=== PATIENT | female | born 1990 | race African-American/Black ===

== ENCOUNTER 2017-08-31 23:02 | Emergency (ER) | payer OTHER ==
[~2017-08-31] VITALS: Ht 165.1 cm; Wt 93.0 kg
[2017-08-31 23:35] VITALS: BP 104/68
[2017-08-31] MEDS ORDERED: TESSALON PERLE100 MG ORAL (23:42)
--- NOTE | 2017-08-31 23:48 | Emergency Room Report ---
History of Present Illness General Chief Complaint: Earache Source: Patient Present Illness HPI 26-year-old female presents with fever, chills, cough, runny nose and right ear ache for 3 days. Cough is productive with clear phlegm. Pt still eating/ drinking well. +sick contacts. No recent travel. No SOB, cp, abdominal pain, n/v /d. Allergies: Coded Allergies: No Known Allergies (Unverified , 08/31/17) Patient History Past Medical History: see triage record Past Surgical History: none Pertinent Family History: none Last Menstrual Period: 08/30/17 Now: No Reviewed Nursing Documentation: PMH: Agreed; PSxH: Agreed Nursing Documentation-PMH Past Medical History: No History, Except For Hx Hypertension: Yes Hx Asthma: No - Bronchitis Review of Systems All Other Systems: negative except mentioned in HPI Physical Exam Vital Signs Date Time Temp Pulse Resp B/P (MAP) Pulse Ox O2 Delivery O2 Flow Rate FiO2 08/31/17 23:18 97.6 81 16 104/68 97 Room Air 97.5 Sp02 EP Interpretation: reviewed, normal General Appearance: normal inspection, well appearing, no apparent distress, alert, GCS 15, non-toxic Head: normocephalic, atraumatic Eyes: bilateral eye normal inspection, bilateral eye PERRL, bilateral eye EOMI ENT: normal pharynx, normal voice, TMs + canals normal, moist mucus membranes, pharyngeal erythema, other - no exudate Neck: normal inspection, full range of motion, supple Respiratory: normal inspection, lungs clear, normal breath sounds, no respiratory distress, no retraction, no wheezing, speaking full sentences, chest symmetrical Cardiovascular #1: normal inspection, regular rate, rhythm, no edema, normal capillary refill Cardiovascular #2: 2+ radial (R), 2+ radial (L) Gastrointestinal: normal inspection, non tender, soft, non-distended, no guarding Musculoskeletal: normal inspection, back normal, normal range of motion, non- tender Neurologic: normal inspection, alert, oriented x3, responsive, motor strength/ tone normal, sensory intact, normal gait, speech normal Psychiatric: normal inspection, judgement/insight normal, memory normal Skin: normal inspection, normal color, no rash, warm/dry, well hydrated, normal turgor Medical Decision Making Diagnostic Impression: Primary Impression: URI (upper respiratory infection) ER Course 26-year-old female p/w fever, chills, runny nose, cough Appears non- toxic, well hydrated, tolerating PO DDX: Likely viral URI/viral pharyngitis Plan: Motrin ER course: Pt stable in ED, remains nontoxic appearing, no sob. Tolerating PO Disposition: Patient discharged to home with Isaac Le Patient instructed to follow up with PMD in 1 week. Also instructed to take motrin/tylenol at home. Very strict return precautions discussed with patient such as intractable fever and chills, unable to eat or drink, severe chest pain or shortness of breath. Patient verbalized understanding and agrees with plan. Please note that this Emergency Department Report was dictated using [employer] designer apprentice technology software, occasionally this can lead to erroneous entry secondary to interpretation by the dictation equipment Last Vital Signs Date Time Temp Pulse Resp B/P (MAP) Pulse Ox O2 Delivery O2 Flow Rate FiO2 08/31/17 23:18 97.6 81 16 104/68 97 Room Air 97.5 Disposition: HOME, SELF-CARE Condition: Improved Scripts Benzonatate* (ISAAC HUBBARD*) 100 Mg Capsule 100 MG ORAL THREE TIMES A DAY, #21 STEVIE Prov: Jory Oakley M.D. 08/31/17 Patient Instructions: Upper Respiratory Infection, Adult, [id number] Jory Oakley M.D. Aug 31, 2017 23:48
[2017-08-31 23:54] VITALS: BP 104/68
== END 2017-08-31 23:55 | disposition home or self-care (01) ==
LOC: EMR 23:35
DX: J06.9 Acute upper respiratory infection, unspecified (principal); I10 Essential (primary) hypertension
CPT/HCPCS: 99283

== ENCOUNTER 2017-09-12 23:18 | Emergency (ER) | payer OTHER ==
[~2017-09-12] VITALS: Ht 167.6 cm; Wt 93.9 kg
[~2017-09-12 23:18] MED LIST: TESSALON PERLE100 MG ORAL
[2017-09-12 23:40] VITALS: BP 124/82
[2017-09-13] MEDS ORDERED: CLARITIN-D 121 EAC1 ORAL (00:04)
[2017-09-13 00:20] VITALS: BP 124/82
--- NOTE | 2017-09-13 04:39 | Emergency Room Report ---
History of Present Illness General Chief Complaint: Earache Source: Patient Present Illness HPI Patient is a 26-year-old female who presented after increased right earache. Patient recent right-sided ear pain. Reported sharp in nature. Patient had the pain was present for one day. Patient recently been treated with antibiotics after right ear infection. She denies any swimming. She denies any recent trauma. She had not been having any vertigo or hearing loss. She denies productive cough. She denied any vocal changes. Allergies: Coded Allergies: No Known Allergies (Unverified , 08/31/17) Patient History Last Menstrual Period: 08/18/2017 Reviewed Nursing Documentation: PMH: Agreed; PSxH: Agreed Nursing Documentation-PMH Hx Hypertension: Yes Hx Asthma: No - Bronchitis Hx Cancer: No - right breast cysts Review of Systems All Other Systems: negative except mentioned in HPI Physical Exam Vital Signs Date Time Temp Pulse Resp B/P (MAP) Pulse Ox O2 Delivery O2 Flow Rate FiO2 09/12/17 23:25 98.4 75 16 124/82 97 Room Air 98.4 General Appearance: well appearing, no apparent distress, obese Head: normocephalic, atraumatic ENT: hearing grossly normal, normal voice, other - right tm no fluid or bulging Neck: full range of motion, supple Respiratory: no respiratory distress, speaking full sentences Musculoskeletal: no calf tenderness Neurologic: normal gait Psychiatric: mood/affect normal Skin: no rash Medical Decision Making Diagnostic Impression: Primary Impression: Earache symptoms in right ear ER Course Patient presented for ear pain. Differential diagnosis included was not limited to otitis media, malignant otitis externa, foreign body, cellulitis, mastoiditis, carotid dissection, myocardial infarction among others. Patient has a benign exam and does not appear to require any further imaging or laboratory testing at this time. The patient appears to have no evidence of acute infection to right ear. The patient is given prescription for decongestants. She is advised to follow-up with her primary care physician for further evaluation and treatment. Last Vital Signs Date Time Temp Pulse Resp B/P (MAP) Pulse Ox O2 Delivery O2 Flow Rate FiO2 09/13/17 00:20 98.4 16 124/82 97 Room Air 209.1 09/12/17 23:25 75 Status: improved Disposition: HOME, SELF-CARE Condition: Stable Scripts Loratadine/Pseudoephedrine (CLARITIN-D 12 HOUR TABLET) 1 Each Tab.er.12h 1 TAB ORAL EVERY 12 HOURS, #30 TAB Prov: Jesus Huggins 09/13/17 Referrals: [facility]ERR[facility] (PCP) Patient Instructions: Jesus Smith Sep 13, 2017 04:39
== END 2017-09-13 00:15 | disposition home or self-care (01) ==
LOC: EMR 23:41
DX: H92.01 Otalgia, right ear (principal); I10 Essential (primary) hypertension
CPT/HCPCS: 99283

== ENCOUNTER 2018-02-20 20:13 | Emergency (ER) | payer OTHER ==
[~2018-02-20] VITALS: Ht 167.6 cm; Wt 103.9 kg
[~2018-02-20 20:13] MED LIST changes: +CLARITIN-D 121 EAC1 ORAL
[2018-02-20 20:19] VITALS: BP 107/69
[2018-02-20] MEDS ORDERED: PREDNISONE20 MG ORAL (21:03)
[2018-02-20] MEDS ORDERED: CEPHALEXIN500 MG ORAL (21:03)
[2018-02-20 21:13] VITALS: BP 107/69
--- NOTE | 2018-02-23 22:39 | Emergency Room Report ---
History of Present Illness General Chief Complaint: Skin Rash/Abscess Source: Patient Present Illness HPI 27-year-old female presents ED for evaluation. Complaining of rash to her right arm 3 days. Started out as a small bump which got progressively worse. Denies pain. States it is itchy. Denies fevers or chills. Denies known food or drug allergies. No other aggravating relieving factors. Denies any other associated symptoms Allergies: Coded Allergies: No Known Allergies (Unverified , 02/20/18) Patient History Past Medical History: HTN Past Surgical History: none Pertinent Family History: none Social History: Denies: smoking, alcohol use, drug use Last Menstrual Period: Feb 2018 Now: No Immunizations: UTD Reviewed Nursing Documentation: PMH: Agreed; PSxH: Agreed Nursing Documentation-PMH Past Medical History: No History, Except For Hx Hypertension: Yes Hx Asthma: Yes - Bronchitis Hx Cancer: No - right breast cysts Review of Systems All Other Systems: negative except mentioned in HPI Physical Exam Vital Signs Date Time Temp Pulse Resp B/P (MAP) Pulse Ox O2 Delivery O2 Flow Rate FiO2 02/20/18 20:19 98.4 71 15 107/69 98 Room Air 98.4 Sp02 EP Interpretation: reviewed, normal General Appearance: no apparent distress, alert, GCS 15, non-toxic Head: normocephalic Eyes: bilateral eye normal inspection, bilateral eye PERRL ENT: normal ENT inspection Neck: normal inspection Respiratory: chest non-tender, lungs clear, normal breath sounds, speaking full sentences Cardiovascular #1: normal inspection Gastrointestinal: normal inspection Rectal: deferred Genitourinary: no CVA tenderness Musculoskeletal: normal inspection Neurologic: alert, oriented x3, responsive, motor strength/tone normal, sensory intact, speech normal Psychiatric: normal inspection Skin: other - circular patches of erythema/induration to RUE. no fluctuance or discharge Lymphatic: normal inspection Medical Decision Making Diagnostic Impression: Primary Impression: Rash and other nonspecific skin eruption ER Course Hospital Course 27-year-old female presents to ED with redness, swelling to RUE Differential diagnoses include: Cellulitis, dermatitis, insect bite, abscess Clinical course Patient placed on stretcher. After initial history, physical exam reveals a female in no acute distress. On exam there is a site for mild erythema and induration to the proximal right upper extremity. There is no fluctuance. There is no tenderness. Full range of motion is noted in the right shoulder and there is no concern for any signs of infection to the joint. There is no tongue swelling, no stridor, no signs of impending airway. Clinical findings consistent with a insect bite with the possible bacterial superinfection. Discussed findings with patient. We'll discharge on antibiotics. Warm compresses recommended. Close follow-up with PMD Diagnosis - rash stable and discharged to home with prescription for prednisone, Keflex. Instructed to followup with PMD. Instructed return to ED if symptoms recur or worsen Last Vital Signs Date Time Temp Pulse Resp B/P (MAP) Pulse Ox O2 Delivery O2 Flow Rate FiO2 02/20/18 21:13 98.4 15 107/69 98 Room Air 98.4 02/20/18 20:19 71 Status: improved Disposition: HOME, SELF-CARE Condition: Stable Scripts Prednisone* (PREDNISONE*) 20 Mg Tablet 40 MG ORAL DAILY, #10 TAB Prov: Franco Gross MD 02/20/18 Cephalexin* (KEFLEX*) 500 Mg Capsule 500 MG ORAL EVERY 6 HOURS for 7 Days, CAP Prov: Franco Gross MD 02/20/18 Referrals: NON PHYSICIAN (PCP) Patient Instructions: Insect Bite, [id number] Franco Gross MD Feb 23, 2018 22:39
== END 2018-02-20 22:30 | disposition home or self-care (01) ==
LOC: EMR 22:24
DX: R21 Rash and other nonspecific skin eruption (principal); I10 Essential (primary) hypertension
CPT/HCPCS: 99282

== ENCOUNTER 2018-05-07 14:59 | Emergency (ER) | payer OTHER ==
[~2018-05-07] VITALS: Ht 165.1 cm; Wt 93.9 kg
[~2018-05-07 14:59] MED LIST changes: +CEPHALEXIN500 MG ORAL; +PREDNISONE20 MG ORAL
--- NOTE | 2018-05-07 15:31 | Emergency Room Report ---
History of Present Illness General Chief Complaint: Lower Extremity Injury Source: Patient Present Illness HPI 27-year-old female patient presents the ER complaining of left ankle pain for the past 2 weeks. Patient reports that she twisted her ankle 2 weeks ago, states that she was seen by her primary care doctor at that time however states no x-ray images were performed, states she was told she has has a sprain and to soak her foot. Patient reports that she has food however states it is still painful. Reports pain with ambulation. Reports swelling on left ankle. Reports took ibuprofen 800 mg an hour before arrival to the ER. Denies fever, chest pain, shortness of breath. Reports eversion injury. Allergies: Coded Allergies: No Known Allergies (Unverified , 02/20/18) Patient History Past Medical History: see triage record Now: No Reviewed Nursing Documentation: PMH: Agreed; PSxH: Agreed Nursing Documentation-PMH Past Medical History: No History, Except For Hx Hypertension: Yes Hx Asthma: Yes - Bronchitis Hx Cancer: No - right breast cysts Review of Systems All Other Systems: negative except mentioned in HPI Physical Exam Vital Signs Date Time Temp Pulse Resp B/P (MAP) Pulse Ox O2 Delivery O2 Flow Rate FiO2 05/07/18 15:10 98.4 101 17 111/70 98 Room Air Sp02 EP Interpretation: reviewed, normal General Appearance: well appearing, no apparent distress, alert, GCS 15, non- toxic Head: normocephalic, atraumatic Eyes: bilateral eye normal inspection, bilateral eye PERRL ENT: hearing grossly normal, normal pharynx, no angioedema, normal voice, uvula midline, moist mucus membranes Neck: full range of motion Respiratory: lungs clear, normal breath sounds, no rhonchi, no respiratory distress, no accessory muscle use, no wheezing, speaking full sentences Cardiovascular #1: regular rate, rhythm, no edema Cardiovascular #2: 2+ dorsalis pedis (R), 2+ dorsalis pedis (L) Musculoskeletal: back normal, digits/nails normal, gait/station normal, normal range of motion, no calf tenderness, Alicia's Sign negative, swelling - Lateral left ankle, other - NVI, cap refill less than 2 seconds, negative ankle drawer, negative syndesmotic squeeze test, no ecchymosis, no erythema, tender - Left lateral posterior malleolus Neurologic: alert, oriented x3, responsive, motor strength/tone normal, sensory intact Medical Decision Making PA Attestation Dr. Huggins is my supervising Physician whom patient management has been discussed with. Diagnostic Impression: Primary Impression: Ankle sprain ER Course Pt. presents to the ED c/o left ankle pain. Ddx considered but are not limited to fracture, sprain, strain, contusion, dislocation. No erythema, no warmth to touch, no fever, nontoxic appearing, low suspicion for septic joint. Soft compartments, no pulselessness, no pallor, no paresthesias, low suspicion for compartment syndrome at this time. Vital signs: are WNL, pt. is afebrile Ordered X-ray and pain medication. ER COURSE Provided with pain medication. An X-ray of the left ankle shows no acute fracture per the preliminary reading, soft tissue swelling noted. Discuss results with the patient. Provided patient with copy of results. Instructed patient to followup with PCP and discuss results of report with patient, discuss need for further treatment and referral. TESSIE wrap was applied to the left ankle and was checked afterwards by me showing good alignment and support with distal neurovascular functioning intact. Crutches provided. Patient instructed on RICE method: rest, ice, compression, elevation. Patient instructed on rest, ice and heat. Patient instructed to be WBAT Contact information for orthopedic urgent care provided, follow-up with urgent care if unable to followup with primary care provider and get referral to seafood specialist. Followup with primary care provider. Discuss referral to ortho/pain management/ PT as needed. Discuss further imaging with MRI/CT as needed. DISCHARGE: At this time pt. is stable for d/c to home. Patient is resting comfortably, in no acute distress, nontoxic appearing, talking without difficulty. Will provide printed patient care instructions, and any necessary prescriptions. Patient instructed to follow with primary care provider in 3 - 5 days and to request further follow-up as needed. Care plan and follow up instructions have been discussed with the patient prior to discharge. Take medications as directed. Patient questions asked and answered. Patient reports understanding and agreement to treatment plan. ER precautions given, patient instructed to return to ER immediately for any new or worsening of symptoms. - Please note that this Emergency Department Report was dictated using [employer] senior sergeant technology software, occasionally this can lead to erroneous entry secondary to interpretation by the dictation equipment. Other X-Ray Diagnostic Results Other X-Ray Diagnostic Results : X-Ray ordered: Left ankle # of Views/Limited Vs Complete: 3 View Indication: Pain EP Interpretation: Yes PA Xray: Interpretation reviewed, by supervising MD, and agrees with findings. Interpretation: no dislocation, no fractures, other - Soft tissue swelling noted over lateral malleolus Impression: No acute disease RONALD Scribe Text David Watts PA-C Last Vital Signs Date Time Temp Pulse Resp B/P (MAP) Pulse Ox O2 Delivery O2 Flow Rate FiO2 05/07/18 15:10 98.4 101 17 111/70 98 Room Air Status: improved Disposition: HOME, SELF-CARE Condition: Stable Scripts Acetaminophen* (TYLENOL EXTRA STRENGTH*) 500 Mg Tablet 500 MG ORAL Q8H PRN for Prn Headache/Temp > 101, #30 TAB 0 Refills Prov: Pablito Watts 05/07/18 Patient Instructions: Ankle Sprain Additional Instructions: Patient instructed to follow up with primary care provider and discuss further referral to orthopedics/physical therapy/pain management as needed. If unable to followup with PCP, followup with orthopedic urgent care in 5-7 days , call to schedule appointment. Patient instructed on RICE method: rest, ice, compression, elevation. Patient instructed to WBAT. Take medications as directed. Patient questions asked and answered. ER precautions given, patient instructed to return to ER immediately for any new or worsening of symptoms. [facility] [address] [facility], [address] [email or web address] Pablito Watts May 07, 2018 15:31
--- NOTE | 2018-05-07 16:00 | Diagnostic Imaging Report ---
Indication: Pain Technique: XRAY Ankle Compl Min 3v L Comparison: None Findings: There is bimalleolar soft tissue swelling. There is no acute fracture. Ankle mortise is intact on these nonstress views. Imaged hindfoot grossly unremarkable. No radiographic foreign body identified. IMPRESSION: Malleolar soft tissue swelling without evidence of acute fracture. Ankle mortise intact.
[2018-05-07] MEDS ORDERED: TYLENOL EXTRA500 MG ORAL (16:10)
[2018-05-07 16:13] VITALS: BP 129/85
== END 2018-05-07 16:13 | disposition home or self-care (01) ==
LOC: EMR 15:45
DX: S93.402A Sprain of unspecified ligament of left ankle, initial encounter (principal); X50.1XXA Overexertion from prolonged static or awkward postures, initial encounter; Y92.9 Unspecified place or not applicable; I10 Essential (primary) hypertension; J45.909 Unspecified asthma, uncomplicated
CPT/HCPCS: 99283

== ENCOUNTER 2019-04-14 15:08 | Emergency (ER) | payer OTHER ==
[~2019-04-14] VITALS: Ht 165.1 cm; Wt 108.9 kg
[~2019-04-14 15:08] MED LIST changes: +TYLENOL EXTRA500 MG ORAL
[2019-04-14 15:20] VITALS: BP 116/70
[2019-04-14] MEDS ORDERED: Acetaminophen 500mg (ES) tab ORAL ONE (15:30)
[2019-04-14 15:59] LABS: APPEARANCE,URINE CLEAR; BILIRUBIN, URINE NEGATIVE (NEGATIVE); GLUCOSE, URINE (UA) NEGATIVE (NEGATIVE); KETONES,URINE 3+ (NEGATIVE); LEUKOCYTE ESTERASE ,URINE 3+ (NEGATIVE); NITRITE,URINE NEGATIVE (NEGATIVE); PH,URINE 6 (4.5-8.0); PROTEIN,URINE 1+ (NEGATIVE); UROBILINOGEN,URINE 1 MG/DL (0.0-1.0)
[2019-04-14 16:03] LABS: ANION GAP 9 mmol/L (5-15); BLOOD UREA NITROGEN 9 mg/dL (7-18); CALCIUM 8.8 MG/DL (8.5-10.1); CARBON DIOXIDE 27 MMOL/L (21-32); CHLORIDE 104 MMOL/L (98-107); CREATININE 0.8 MG/DL (0.55-1.30); POTASSIUM 3.4 MMOL/L (3.5-5.1); SODIUM 139 MMOL/L (136-145)
--- NOTE | 2019-04-14 16:05 | Emergency Room Report ---
History of Present Illness General Chief Complaint: Abdominal Pain Source: Patient Present Illness HPI 28-year-old female patient is worried because she has not had her period 1 month ago, no fevers no chills no vaginal bleeding no discharge no dysuria patient wants to make sure everything is okay she has been having unprotected sex. Patient presents for evaluation she endorses a lot of nausea presents with abdominal cramps x1 day no aggravating relieving factors severity is mild, Allergies: Coded Allergies: No Known Allergies (Unverified , 04/14/19) Patient History Past Medical History: see triage record Last Menstrual Period: FEB 2019 Reviewed Nursing Documentation: PMH: Agreed; PSxH: Agreed Nursing Documentation-PMH Past Medical History: No History, Except For Hx Hypertension: Yes Hx Asthma: Yes - Bronchitis Hx Cancer: No - right breast cysts Review of Systems All Other Systems: negative except mentioned in HPI Physical Exam Vital Signs Date Time Temp Pulse Resp B/P (MAP) Pulse Ox O2 Delivery O2 Flow Rate FiO2 04/14/19 15:16 97.9 76 18 111/69 (83) 100 Room Air Sp02 EP Interpretation: reviewed, normal General Appearance: well appearing, no apparent distress, alert Head: normocephalic, atraumatic Eyes: bilateral eye PERRL, bilateral eye EOMI ENT: uvula midline, moist mucus membranes Neck: supple, thyroid normal, supple/symm/no masses Respiratory: lungs clear, no respiratory distress, no retraction, no accessory muscle use Cardiovascular #1: normal peripheral pulses, regular rate, rhythm, no edema, no gallop, no murmur Gastrointestinal: non tender, soft, no guarding, no rebound Musculoskeletal: normal inspection Neurologic: alert, oriented x3 Psychiatric: mood/affect normal Skin: no rash, warm/dry Medical Decision Making Diagnostic Impression: Primary Impression: Qualified Codes: Z3A.01 - Less than 8 weeks gestation of Additional Impression: UTI (urinary tract infection) Qualified Codes: N30.00 - Acute cystitis without hematuria ER Course 28-year-old female presents with suprapubic pain, and no period x1 mo, ddx includes , uti, appendicitis Patient with positive and + UTI will start abx repeat abdominal exam abdomen soft non tender, no pain while in ed, no acute indication for US Dispo home w/ return precautions Patient reports she will follow-up with OB-department clerk Laboratory Tests Test 04/14/19 15:30 White Blood Count 10.3 K/UL (4.8-10.8) Red Blood Count 5.25 M/UL (4.20-5.40) Hemoglobin 11.1 G/DL (12.0-16.0) L Hematocrit 34.8 % (37.0-47.0) L Mean Corpuscular Volume 66 FL (80-99) L Mean Corpuscular Hemoglobin 21.2 PG (27.0-31.0) L Mean Corpuscular Hemoglobin Concent 32.0 G/DL (32.0-36.0) Red Cell Distribution Width 10.9 % (11.6-14.8) L Platelet Count 318 K/UL (150-450) Mean Platelet Volume 6.5 FL (6.5-10.1) Neutrophils (%) (Auto) 61.9 % (45.0-75.0) Lymphocytes (%) (Auto) 30.5 % (20.0-45.0) Monocytes (%) (Auto) 5.6 % (1.0-10.0) Eosinophils (%) (Auto) 0.8 % (0.0-3.0) Basophils (%) (Auto) 1.4 % (0.0-2.0) Urine Color Yellow Urine Appearance Clear Urine pH 6 (4.5-8.0) Urine Specific [place] 1.020 (1.005-1.035) Urine Protein 1+ (NEGATIVE) H Urine Glucose (UA) Negative (NEGATIVE) Urine Ketones 3+ (NEGATIVE) H Urine Blood 1+ (NEGATIVE) H Urine Nitrite Negative (NEGATIVE) Urine Bilirubin Negative (NEGATIVE) Urine Urobilinogen 1 MG/DL (0.0-1.0) H Urine Leukocyte Esterase 3+ (NEGATIVE) H Urine RBC Pending Urine WBC Pending Urine Squamous Epithelial Cells Pending Urine Bacteria Pending Urine HCG, Qualitative Positive (NEGATIVE) Sodium Level 139 MMOL/L (136-145) Potassium Level 3.4 MMOL/L (3.5-5.1) L Chloride Level 104 MMOL/L (98-107) Carbon Dioxide Level 27 MMOL/L (21-32) Anion Gap 9 mmol/L (5-15) Blood Urea Nitrogen 9 mg/dL (7-18) Creatinine 0.8 MG/DL (0.55-1.30) Estimate Glomerular Filtration Rate > 60 mL/min (>60) Glucose Level 81 MG/DL (74-106) Calcium Level 8.8 MG/DL (8.5-10.1) Total Bilirubin 0.4 MG/DL (0.2-1.0) Aspartate Amino Transferase (AST) 17 U/L (15-37) Alanine Aminotransferase (ALT) 27 U/L (12-78) Alkaline Phosphatase 64 U/L (46-116) Total Protein 8.2 G/DL (6.4-8.2) Albumin 3.6 G/DL (3.4-5.0) Globulin 4.6 g/dL Albumin/Globulin Ratio 0.8 (1.0-2.7) L Lipase 57 U/L (73-393) L Last Vital Signs Date Time Temp Pulse Resp B/P (MAP) Pulse Ox O2 Delivery O2 Flow Rate FiO2 04/14/19 15:20 80 18 Room Air 04/14/19 15:20 98.0 116/70 99 Disposition: HOME, SELF-CARE Condition: Stable Scripts Cephalexin* (KEFLEX*) 500 Mg Tablet 500 MG ORAL EVERY 6 HOURS, #20 CAP Prov: Kwesi Rosen MD 04/14/19 Referrals: [facility] Patient Instructions: Abdominal Pain During , First Trimester of , Urinary Tract Infection, [id number] Additional Instructions: The patient was provided with discharge instructions, notified to follow-up with a primary care doctor and or specialist in the next 24-48 hours, and to return to the ED if they have worsening of their symptoms. Please note that this report is being documented using [employer] technology. This can lead to erroneous entry secondary to incorrect interpretation by the dictating instrument. PLEASE FOLLOW-UP WITH Kwesi Paz MD Apr 14, 2019 16:05
[2019-04-14 16:06] LABS: COLOR,URINE YELLOW
[2019-04-14 16:07] LABS: ALANINE AMINOTRANSFERASE 27 U/L (12-78); ALBUMIN 3.6 G/DL (3.4-5.0); ALBUMIN/GLOBULIN RATIO 0.8 (1.0-2.7); ALKALINE PHOSPHATASE 64 U/L (46-116); ASPARTATE AMINO TRANSFERASE 17 U/L (15-37); BASOPHILS % (AUTO) 1.4 % (0.0-2.0); BILIRUBIN,TOTAL 0.4 MG/DL (0.2-1.0); EOSINOPHILS % (AUTO) 0.8 % (0.0-3.0); HEMATOCRIT 34.8 % (37.0-47.0); HEMOGLOBIN 11.1 G/DL (12.0-16.0); LYMPHOCYTES % (AUTO) 30.5 % (20.0-45.0); MEAN CORPUSCULAR VOLUME 66 FL (80-99); MONOCYTES % (AUTO) 5.6 % (1.0-10.0); NEUTROPHILS % (AUTO) 61.9 % (45.0-75.0); PLATELET COUNT 318 K/UL (150-450); RED BLOOD COUNT 5.25 M/UL (4.20-5.40); RED CELL DISTRIBUTION WIDTH 10.9 % (11.6-14.8); WHITE BLOOD COUNT 10.3 K/UL (4.8-10.8)
[2019-04-14] MEDS ORDERED: CEPHALEXIN500 M1 ORAL (16:17)
[2019-04-14 16:20] VITALS: BP 122/73
== END 2019-04-14 16:20 | disposition home or self-care (01) ==
LOC: EMR 16:20
DX: O23.41 Unspecified infection of urinary tract in pregnancy, first trimester (principal); Z3A.01 Less than 8 weeks gestation of pregnancy; I10 Essential (primary) hypertension; J40 Bronchitis, not specified as acute or chronic
CPT/HCPCS: 36415; 80053; 81003; 81025; 83690; 85025; 96361; 96374; J2405; Z7502; 99284